=== PATIENT | male | born 1985 | race Caucasian/White ===

== ENCOUNTER 2017-03-17 20:08 | Emergency (ER) | payer OTHER ==
[~2017-03-17] VITALS: Ht 167.6 cm; Wt 77.1 kg
[2017-03-17 20:10] VITALS: BP_SYST 112
[2017-03-17 21:12] VITALS: BP_SYST 112
== END 2017-03-17 21:12 ==
LOC: SED 20:08
DX: F10.10 Alcohol abuse, uncomplicated (principal)
CPT/HCPCS: 99283